=== PATIENT | female | born 1940 | race Caucasian/White ===

== ENCOUNTER 2020-10-22 13:49 | Emergency (ER) | payer MEDICARE ==
[~2020-10-22] VITALS: Ht 160 cm; Wt 42.6 kg
[2020-10-22 18:34] LABS: HEMOGLOBIN 9.6 gm/dl (12.3-15.3); RED BLOOD COUNT 3.54 M/UL (4.00-5.10); WHITE BLOOD COUNT 7.4 K/UL (4.5-11.0)
[2020-10-22] MEDS ORDERED: DOXYCYCLINE HY100 MG PO (19:24)
[2020-10-22] MEDS ORDERED: FLORASTOR250 MG PO (19:25)
[2020-12-16] MEDS ORDERED: ATORVASTATIN CA40 MG PO (03:36)
[2020-12-16] MEDS ORDERED: ZOLOFT100 MG PO (03:37)
== END 2020-10-22 20:40 | disposition home or self-care (01) ==
LOC: ER1 13:49 → CDU 17:42 → ER1 20:40
PROVIDERS: Preventive Medicine Occupational Medicine
DX: L03.116 Cellulitis of left lower limb (principal); I25.10 Atherosclerotic heart disease of native coronary artery without angina pectoris; I48.0 Paroxysmal atrial fibrillation; G25.81 Restless legs syndrome; K21.9 Gastro-esophageal reflux disease without esophagitis; E11.9 Type 2 diabetes mellitus without complications; I73.9 Peripheral vascular disease, unspecified; E03.9 Hypothyroidism, unspecified; E78.5 Hyperlipidemia, unspecified; I10 Essential (primary) hypertension; J44.9 Chronic obstructive pulmonary disease, unspecified; Z79.02 Long term (current) use of antithrombotics/antiplatelets; Z79.899 Other long term (current) drug therapy; Z88.0 Allergy status to penicillin; Z88.8 Allergy status to other drugs, medicaments and biological substances; Z88.5 Allergy status to narcotic agent; Z87.891 Personal history of nicotine dependence; Z98.890 Other specified postprocedural states; Z86.14 Personal history of Methicillin resistant Staphylococcus aureus infection; Z87.19 Personal history of other diseases of the digestive system; Z79.01 Long term (current) use of anticoagulants
CPT/HCPCS: 73620; 80053; 85025; 85652; 86140; 96365; 96366; 99283; J3370; J7030; J7050

== ENCOUNTER 2020-10-24 13:19 | Observation (INO) | payer OTHER ==
[~2020-10-24] VITALS: Ht 152.4 cm; Wt 42.6 kg
[~2020-10-24 13:19] MED LIST: DOXYCYCLINE HY100 MG PO; FLORASTOR250 MG PO
[2020-10-24 14:29] LABS: HEMOGLOBIN 8.8 gm/dl (12.3-15.3); WHITE BLOOD COUNT 6.8 K/UL (4.5-11.0)
[2020-10-24 14:37] LABS: RED BLOOD COUNT 3.18 M/UL (4.00-5.10)
[2020-10-24] MEDS ORDERED: BACTROBAN OINT22 GM TP (23:37)
[2020-10-24] MEDS ORDERED: LEVOTHYROXINE175 MC1 PO (23:38)
[2020-10-25 06:11] LABS: HEMOGLOBIN 9.1 gm/dl (12.3-15.3); RED BLOOD COUNT 3.37 M/UL (4.00-5.10)
[2020-10-26] MEDS ORDERED: ELIQUIS2.5 MG PO (03:35)
[2020-10-26] MEDS ORDERED: AMLODIPINE BES2.5 MG PO (03:35)
[2020-10-26] MEDS ORDERED: PROTONIX40 MG PO (03:36)
[2020-10-26] MEDS ORDERED: PLAVIX75 MG PO (03:36)
[2020-10-26] MEDS ORDERED: PROPRANOLOL HCL80 MG PO (03:37)
[2020-10-26] MEDS ORDERED: TRAZODONE HCL150 MG PO (03:38)
[2020-10-26] MEDS ORDERED: DOXYCYCLINE HY100 M2 PO (03:38)
--- NOTE | 2020-10-26 12:09 | NUR ---
SPOKE WITH DR. MCALLISTER R/T HOME MEDICATION RECONCILATION THIS SHIFT MD IS AWARE.
--- NOTE | 2020-10-26 17:24 | NUR ---
CALLED [facility] TO CALL REPORT ON PATIENT. LEFT NAME AND NUMBER FOR FACILITY TO RETURN CALL.
[2020-12-16] MEDS ORDERED: ATORVASTATIN CA40 MG PO (03:36)
[2020-12-16] MEDS ORDERED: ZOLOFT100 MG PO (03:37)
== END 2020-10-26 17:18 | disposition home or self-care (01) ==
LOC: ER1 13:19 → CDU 17:30 → M/S 17:30
PROVIDERS: Physician Assistant; Physician Assistant Medical; ADMIT Internal Medicine
DX: S32.409A Unspecified fracture of unspecified acetabulum, initial encounter for closed fracture (principal); L03.116 Cellulitis of left lower limb; I25.10 Atherosclerotic heart disease of native coronary artery without angina pectoris; I10 Essential (primary) hypertension; X58.XXXA Exposure to other specified factors, initial encounter; K21.9 Gastro-esophageal reflux disease without esophagitis; I73.9 Peripheral vascular disease, unspecified; G25.81 Restless legs syndrome; E11.9 Type 2 diabetes mellitus without complications; Z98.61 Coronary angioplasty status; Z88.0 Allergy status to penicillin; Z79.899 Other long term (current) drug therapy; Z87.891 Personal history of nicotine dependence; Z20.822 Contact with and (suspected) exposure to COVID-19
CPT/HCPCS: 36415; 72170; 80048; 80053; 83735; 85025; 85027; 85610; 86850; 86900; 86901; 96374; 97110-GP-CQ; 97116-GP-CQ; 97161; 97165; 97535; 99285; G0378; J2405; U0002

== ENCOUNTER → 2020-11-08 | Outpatient (CLI) | payer OTHER ==
[~2020-11-08] MED LIST changes: +AMLODIPINE BES2.5 MG PO; +ATORVASTATIN CA40 MG PO; +BACTROBAN OINT22 GM TP; +CLOPIDOGREL75 MG PO; +DOXYCYCLINE HY100 M2 PO; +ELIQUIS2.5 MG PO; +INDERAL XL80 MG PO; +IPRAT-ALBUT 0.5-3 ML NEB; +K-DUR TAB 10 M10 MEQ PO; +LASIX TAB 20 MG20 MG PO; +LEVOFLOXACIN750 MG PO; +LEVOTHYROXINE175 MC1 PO; +LEVOTHYROXINE175 MCG PO; +MEDROL DOSEPAK 24 MG PO; +NITROGLYCERIN0.4 MG SL; +OXYCODON-ACETA1 EAC1 PO; +PLAVIX75 MG PO; +PRAMIPEXOLE DI0.5 MG PO; +PROPRANOLOL HCL80 MG PO; +PROTONIX 40 MG40 M1 PO; +PROTONIX40 MG PO; +SPIRIVA HANDIH18 MCG INH; +SYMBICORT 16010.2 GM INH; +TRAZODONE HCL150 MG PO; +ZOLOFT100 MG PO
[2020-11-08 15:56] LABS: HEMOGLOBIN 9.5 gm/dl (12.3-15.3); RED BLOOD COUNT 3.61 M/UL (4.00-5.10); WHITE BLOOD COUNT 9.1 K/UL (4.5-11.0)
== END ==
LOC: LAB 14:08
PROVIDERS: Family Medicine
DX: D64.9 Anemia, unspecified (principal)
CPT/HCPCS: 36415; 82728; 83540; 83550; 85025

== ENCOUNTER 2020-12-16 05:53 | Inpatient (IN) | payer MEDICARE ==
[~2020-12-16] VITALS: Ht 157.5 cm; Wt 42.6 kg
[~2020-12-16 05:53] MED LIST changes: -CLOPIDOGREL75 MG PO; -INDERAL XL80 MG PO; -IPRAT-ALBUT 0.5-3 ML NEB; -K-DUR TAB 10 M10 MEQ PO; -LASIX TAB 20 MG20 MG PO; -LEVOFLOXACIN750 MG PO; -LEVOTHYROXINE175 MCG PO; -MEDROL DOSEPAK 24 MG PO; -NITROGLYCERIN0.4 MG SL; -OXYCODON-ACETA1 EAC1 PO; -PRAMIPEXOLE DI0.5 MG PO; -PROTONIX 40 MG40 M1 PO; -SPIRIVA HANDIH18 MCG INH; -SYMBICORT 16010.2 GM INH
[2020-12-16 06:42] LABS: HEMOGLOBIN 9.2 gm/dl (12.3-15.3); RED BLOOD COUNT 3.65 M/UL (4.00-5.10); WHITE BLOOD COUNT 8.4 K/UL (4.5-11.0)
[2020-12-16 07:15] LABS: BUN/CREATININE RATIO 23 (0-10)
[2020-12-16] MEDS ORDERED: CLOPIDOGREL75 MG PO (10:09)
[2020-12-16] MEDS ORDERED: LEVOTHYROXINE175 MCG PO (10:10)
[2020-12-16] MEDS ORDERED: NITROGLYCERIN0.4 MG SL (10:11)
[2020-12-16] MEDS ORDERED: PROTONIX 40 MG40 M1 PO (10:11)
[2020-12-16] MEDS ORDERED: PRAMIPEXOLE DI0.5 MG PO (10:28)
[2020-12-16] MEDS ORDERED: INDERAL XL80 MG PO (10:49)
[2020-12-16] MEDS ORDERED: ELIQUIS2.5 MG PO (10:50)
[2020-12-16] MEDS ORDERED: OXYCODON-ACETA1 EAC1 PO (23:38)
[2020-12-17 03:06] LABS: HEMOGLOBIN 8.5 gm/dl (12.3-15.3); RED BLOOD COUNT 3.42 M/UL (4.00-5.10); WHITE BLOOD COUNT 6.9 K/UL (4.5-11.0)
[2020-12-18 05:45] LABS: HEMOGLOBIN 8.5 gm/dl (12.3-15.3); RED BLOOD COUNT 3.37 M/UL (4.00-5.10)
[2020-12-19 03:44] LABS: HEMOGLOBIN 9.4 gm/dl (12.3-15.3); WHITE BLOOD COUNT 12.5 K/UL (4.5-11.0)
[2020-12-19 03:47] LABS: RED BLOOD COUNT 3.77 M/UL (4.00-5.10)
[2020-12-19] MEDS ORDERED: SPIRIVA HANDIH18 MCG INH (16:35)
[2020-12-19] MEDS ORDERED: IPRAT-ALBUT 0.5-3 ML NEB (16:35)
[2020-12-19] MEDS ORDERED: MEDROL DOSEPAK 24 MG PO (16:35)
[2020-12-19] MEDS ORDERED: SYMBICORT 16010.2 GM INH (16:35)
[2020-12-19] MEDS ORDERED: LEVOFLOXACIN750 MG PO (16:35)
[2020-12-19] MEDS ORDERED: LASIX TAB 20 MG20 MG PO (16:39)
[2020-12-20] MEDS ORDERED: K-DUR TAB 10 M10 MEQ PO (11:38)
== END 2020-12-20 15:56 | disposition home or self-care (01) | DRG 291 ==
LOC: ER1 05:53 → M/S 09:26 → CDU 09:26 → M/S 11:04
PROVIDERS: Family Medicine; Physician Assistant Medical; ADMIT Internal Medicine
PROC: B24BZZ4 Ultrasonography of Heart with Aorta, Transesophageal (ICD-10-PCS; principal; 2020-12-16)
DX: I11.0 Hypertensive heart disease with heart failure (principal); J96.01 Acute respiratory failure with hypoxia; J15.9 Unspecified bacterial pneumonia; I50.31 Acute diastolic (congestive) heart failure; S32.591A Other specified fracture of right pubis, initial encounter for closed fracture; J44.1 Chronic obstructive pulmonary disease with (acute) exacerbation; J44.0 Chronic obstructive pulmonary disease with (acute) lower respiratory infection; L03.115 Cellulitis of right lower limb; Z20.822 Contact with and (suspected) exposure to COVID-19; I27.20 Pulmonary hypertension, unspecified; E87.6 Hypokalemia; G47.33 Obstructive sleep apnea (adult) (pediatric); I08.2 Rheumatic disorders of both aortic and tricuspid valves; E78.5 Hyperlipidemia, unspecified; I48.0 Paroxysmal atrial fibrillation; K21.9 Gastro-esophageal reflux disease without esophagitis; I73.9 Peripheral vascular disease, unspecified; F17.210 Nicotine dependence, cigarettes, uncomplicated; E03.9 Hypothyroidism, unspecified; G25.81 Restless legs syndrome; I25.10 Atherosclerotic heart disease of native coronary artery without angina pectoris; Z95.5 Presence of coronary angioplasty implant and graft; Z79.01 Long term (current) use of anticoagulants; Z83.511 Family history of glaucoma; Z82.49 Family history of ischemic heart disease and other diseases of the circulatory system; Z80.1 Family history of malignant neoplasm of trachea, bronchus and lung; Z83.3 Family history of diabetes mellitus; Z88.8 Allergy status to other drugs, medicaments and biological substances; Z91.041 Radiographic dye allergy status
CPT/HCPCS: ECHO; 36415; 36600; 71045; 71046; 72170; 78579; 80048; 80053; 82550; 82553; 82803; 82962; 83605; 83735; 83880; 84132; 84484; 85025; 85027; 85379; 85610; 87040; 93005; 93306; 93970; 94640; 94664; 94760; 96372; 96374; 96375; 97110; 97116; 97116-GP-CQ; 97161; 97530; 97530-GP-CQ; 99285; A9540; J0692; J1940; J2920; J2930; J7070; U0002

== ENCOUNTER 2020-12-22 14:53 | Emergency (ER) | payer MEDICARE ==
[~2020-12-22 14:53] MED LIST changes: +CLOPIDOGREL75 MG PO; +INDERAL XL80 MG PO; +IPRAT-ALBUT 0.5-3 ML NEB; +K-DUR TAB 10 M10 MEQ PO; +LASIX TAB 20 MG20 MG PO; +LEVOFLOXACIN750 MG PO; +LEVOTHYROXINE175 MCG PO; +MEDROL DOSEPAK 24 MG PO; +NITROGLYCERIN0.4 MG SL; +OXYCODON-ACETA1 EAC1 PO; +PRAMIPEXOLE DI0.5 MG PO; +PROTONIX 40 MG40 M1 PO; +SPIRIVA HANDIH18 MCG INH; +SYMBICORT 16010.2 GM INH
[2020-12-22 15:28] LABS: HEMOGLOBIN 10.6 gm/dl (12.3-15.3); RED BLOOD COUNT 4.25 M/UL (4.00-5.10); WHITE BLOOD COUNT 10.2 K/UL (4.5-11.0)
[2020-12-22 15:54] LABS: BUN/CREATININE RATIO 46 (0-10)
== END 2020-12-22 19:18 | disposition home or self-care (01) ==
LOC: ER1 14:53
PROVIDERS: Emergency Medicine
DX: J44.9 Chronic obstructive pulmonary disease, unspecified (principal); I11.0 Hypertensive heart disease with heart failure; I50.9 Heart failure, unspecified; I25.10 Atherosclerotic heart disease of native coronary artery without angina pectoris; I27.20 Pulmonary hypertension, unspecified; Z87.09 Personal history of other diseases of the respiratory system; E11.51 Type 2 diabetes mellitus with diabetic peripheral angiopathy without gangrene; E78.5 Hyperlipidemia, unspecified; I48.91 Unspecified atrial fibrillation; K21.9 Gastro-esophageal reflux disease without esophagitis; E03.9 Hypothyroidism, unspecified; Z95.5 Presence of coronary angioplasty implant and graft; Z90.89 Acquired absence of other organs; Z88.0 Allergy status to penicillin; Z88.5 Allergy status to narcotic agent; Z88.8 Allergy status to other drugs, medicaments and biological substances; Z91.041 Radiographic dye allergy status
CPT/HCPCS: 36600; 71045; 80053; 81001; 82550; 82553; 82803; 83874; 83880; 84484; 85025; 87040; 93005; 94640; 94664; 99285

== ENCOUNTER 2021-04-12 16:01 | Emergency (ER) | payer MEDICARE ==
[2021-04-12 18:17] LABS: HEMOGLOBIN 10.7 gm/dl (12.3-15.3); RED BLOOD COUNT 4.03 M/UL (4.00-5.10); WHITE BLOOD COUNT 8.3 K/UL (4.5-11.0)
== END 2021-04-13 01:09 | disposition short-term general hospital (02) ==
LOC: ER1 16:01
PROVIDERS: Physician Assistant
DX: T18.128A Food in esophagus causing other injury, initial encounter (principal); K21.9 Gastro-esophageal reflux disease without esophagitis; I25.10 Atherosclerotic heart disease of native coronary artery without angina pectoris; Z79.01 Long term (current) use of anticoagulants; Z20.822 Contact with and (suspected) exposure to COVID-19
CPT/HCPCS: 70490; 80048; 85025; 99285; U0002

== ENCOUNTER 2022-02-18 13:05 | Emergency (ER) | payer MEDICARE ==
[2022-02-18 13:50] LABS: HEMOGLOBIN 11.4 gm/dl (12.3-15.3); RED BLOOD COUNT 4.09 M/UL (4.00-5.10); WHITE BLOOD COUNT 7.5 K/UL (4.5-11.0)
[2022-02-18] MEDS ORDERED: DOXYCYCLINE HY100 M2 PO (18:05)
== END 2022-02-18 19:17 | disposition home or self-care (01) ==
LOC: ER1 13:05
PROVIDERS: Physician Assistant
DX: L03.115 Cellulitis of right lower limb (principal); I10 Essential (primary) hypertension; Z87.891 Personal history of nicotine dependence; Z88.0 Allergy status to penicillin; Z88.5 Allergy status to narcotic agent; W19.XXXA Unspecified fall, initial encounter
CPT/HCPCS: 70450; 72125; 72192; 73502; 73564; 80053; 83605; 85025; 86140; 99284

== ENCOUNTER 2022-03-03 11:56 | Emergency (ER) | payer MEDICARE ==
[2022-03-03 12:31] LABS: HEMOGLOBIN 9.8 gm/dl (12.3-15.3); RED BLOOD COUNT 3.49 M/UL (4.00-5.10); WHITE BLOOD COUNT 9.4 K/UL (4.5-11.0)
== END 2022-03-03 18:55 | disposition home or self-care (01) ==
LOC: ER1 11:56
PROVIDERS: Physician Assistant
DX: S09.90XA Unspecified injury of head, initial encounter (principal); S16.1XXA Strain of muscle, fascia and tendon at neck level, initial encounter; S60.221A Contusion of right hand, initial encounter; J38.3 Other diseases of vocal cords; R07.89 Other chest pain; I10 Essential (primary) hypertension; J44.9 Chronic obstructive pulmonary disease, unspecified; Z88.0 Allergy status to penicillin; Z79.01 Long term (current) use of anticoagulants; Z79.02 Long term (current) use of antithrombotics/antiplatelets; Z79.899 Other long term (current) drug therapy; W01.10XA Fall on same level from slipping, tripping and stumbling with subsequent striking against unspecified object, initial encounter
CPT/HCPCS: 70450; 71045; 72125; 73130; 80053; 82550; 82553; 83880; 84484; 85025; 93005; 96374; 99284; J1940